=== PATIENT | male | born 1945 | race Caucasian/White ===

== ENCOUNTER 2018-09-05 15:24 | Observation (INO) ==
[2018-09-05] MEDS ORDERED: ZOFRAN INJ 4 MG VIAL IVP PRN (16:25)
[2018-09-05] MEDS ORDERED: NS 1000 ML 1,000 ML ONE (16:33)
[2018-09-05] MEDS ORDERED: TORADOL 30 MG VIAL ONE (16:34)
[2018-09-05] MEDS: NS 1000 ML 1,000 ML IV SCH (16:41)
[2018-09-05] MEDS: TORADOL 30 MG VIAL IVP PRN (16:41)
[2018-09-05 17:18] LABS: BASOPHILS # (AUTO) 0.1 X10^3/uL (0.0-0.1); BASOPHILS % (AUTO) 1.1 % (0.2-1.0); EOSINOPHILS # (AUTO) 0.1 x10^3/uL (0.0-0.2); EOSINOPHILS % (AUTO) 1.2 % (0.9-2.9); HEMATOCRIT 41.6 % (42.0-54.0); HEMOGLOBIN 14.2 g/dL (13.5-18.0); LYMPHOCYTES # (AUTO) 1.1 X10^3/uL (1.3-2.9); LYMPHOCYTES % (AUTO) 10.7 % (21.0-51.0); MEAN CORPUSCULAR HEMOGLOBIN 32.7 pg (27.0-34.0); MEAN CORPUSCULAR HGB CONC 34.1 g/dL (33.0-35.0); MONOCYTES # (AUTO) 0.7 x10^3/uL (0.3-0.8); MONOCYTES % (AUTO) 7.4 % (0.0-13.0); NEUTROPHILS # (AUTO) 7.9 x10^3/uL (2.2-4.8); NEUTROPHILS % (AUTO) 79.6 % (42.0-75.0); PLATELET COUNT 274 X10^3/uL (150.0-450.0); RED BLOOD COUNT 4.33 X10^6/uL (4.7-6.0); RED CELL DISTRIBUTION WIDTH 14.4 % (11.6-16.5); WHITE BLOOD COUNT 9.9 X10^3/uL (3.6-10.0)
[2018-09-05 17:28] LABS: ALANINE AMINOTRANSFERASE 25 Units/L (12-78); ALKALINE PHOSPHATASE 77 Units/L (46-116); ASPARTATE AMINO TRANSFERASE 16 Units/L (15-37); BLOOD UREA NITROGEN 29 mg/dL (7-18); CALCIUM 9.8 mg/dL (8.5-10.1); CARBON DIOXIDE 24.4 mmol/L (21-32); CHLORIDE 99 mmol/L (98-107); COR NA(FOR HYPERGLY) 139 mmol/L (136-145); CREATININE 1.44 mg/dL (0.70-1.30); SODIUM 136 mmol/L (136-145); eGFR NON BLACK RACES 51 (>60)
[2018-09-05] MEDS ORDERED: GLUCOPHAGE ONE (20:23)
[2018-09-05] MEDS: LEVAQUIN PREMIX IV 500 MG 500 MG/100 ML BAG IV SCH (21:01)
[2018-09-05] MEDS: GLUCOTROL PO SCH (21:01)
[2018-09-05] MEDS: GLUCOPHAGE PO SCH (21:01)
[2018-09-05] MEDS: FORTAZ or TAZICEF VIAL INJ IVP SCH (21:05)
[2018-09-05] MEDS: SNACK - Diabetic Appropriate PO SCH (21:09)
[2018-09-06] MEDS: TORADOL 30 MG VIAL IVP PRN ×4 (02:30→23:54)
[2018-09-06] MEDS ORDERED: GLUCOPHAGE ONE ×2 (05:14→16:05)
[2018-09-06 05:31] LABS: BASOPHILS % (AUTO) 0.5 % (0.2-1.0); EOSINOPHILS # (AUTO) 0.2 x10^3/uL (0.0-0.2); EOSINOPHILS % (AUTO) 2.9 % (0.9-2.9); HEMATOCRIT 38.7 % (42.0-54.0); HEMOGLOBIN 13.2 g/dL (13.5-18.0); LYMPHOCYTES # (AUTO) 1.2 X10^3/uL (1.3-2.9); LYMPHOCYTES % (AUTO) 16.1 % (21.0-51.0); MEAN CORPUSCULAR HEMOGLOBIN 33.1 pg (27.0-34.0); MEAN CORPUSCULAR HGB CONC 34.2 g/dL (33.0-35.0); MEAN CORPUSCULAR VOLUME 96.6 fL (80.0-100.0); MEAN PLATELET VOLUME 8.6 fL (7.4-11.0); MONOCYTES # (AUTO) 0.8 x10^3/uL (0.3-0.8); MONOCYTES % (AUTO) 10.6 % (0.0-13.0); NEUTROPHILS # (AUTO) 5.3 x10^3/uL (2.2-4.8); NEUTROPHILS % (AUTO) 69.9 % (42.0-75.0); PLATELET COUNT 248 X10^3/uL (150.0-450.0); RED CELL DISTRIBUTION WIDTH 14.5 % (11.6-16.5); WHITE BLOOD COUNT 7.6 X10^3/uL (3.6-10.0)
[2018-09-06] MEDS: GLUCOTROL PO SCH ×2 (05:31→16:23)
[2018-09-06] MEDS: FORTAZ or TAZICEF VIAL INJ IVP SCH ×2 (05:31→13:30)
[2018-09-06] MEDS: NS 1000 ML 1,000 ML IV SCH ×2 (05:31→18:02)
[2018-09-06 05:36] LABS: ALBUMIN 3.2 g/dL (3.4-5.0); CALCIUM 8.9 mg/dL (8.5-10.1); COR CA(FOR HYPOALB) 9.5 mg/dL (8.5-10.1); CREATININE 1.96 mg/dL (0.70-1.30)
[2018-09-06] MEDS: GLUCOPHAGE PO SCH ×2 (06:02→16:23)
[2018-09-06 07:57] VITALS: BMI 47.9
[2018-09-06] MEDS: LEVAQUIN PREMIX IV 500 MG 500 MG/100 ML BAG IV SCH (08:05)
[2018-09-06] MEDS: FIORICET TAB PO PRN ×3 (08:05→19:49)
[2018-09-06] MEDS: RANEXA PO SCH ×2 (11:04→20:30)
[2018-09-06] MEDS: NORVASC TAB 10 MG PO SCH (11:04)
[2018-09-06] MEDS: TAB-A-VITE PO SCH (11:06)
[2018-09-06] MEDS: CORDARONE TAB 200 MG PO SCH (11:06)
[2018-09-06] MEDS: SYNTHROID 50 mcg TAB PO SCH (11:06)
[2018-09-06] MEDS: ZANTAC PO SCH (11:06)
[2018-09-06] MEDS: ELIQUIS PO SCH ×2 (11:07→20:30)
[2018-09-06] MEDS: COENZYME Q10 100 MG PO SCH ×2 (11:19→20:33)
[2018-09-06] MEDS: EMPAGLIFLOZIN 25 MG PO SCH (11:26)
[2018-09-06] MEDS: PATIENT'S HOME MEDICATION (Glucosamine-Chondroit-Vit C-Mn [Glucosamine Chondroitin Maxstr] PO SCH ×2 (11:26→20:34)
[2018-09-06] MEDS: IRBESARTAN 300 MG PO SCH (11:27)
[2018-09-06] MEDS: PRASUGREL 10 MG PO SCH (11:27)
[2018-09-06] MEDS: SAXAGLIPTIN 5 MG PO SCH (11:28)
[2018-09-06] MEDS ORDERED: PHARMACY CONSULT - DOSE _____ XX SCH (17:00)
[2018-09-06] MEDS: SNACK - Diabetic Appropriate PO SCH (19:51)
[2018-09-06] MEDS: REQUIP PO SCH (20:30)
[2018-09-06] MEDS: VITAMIN C PO SCH (20:31)
[2018-09-06] MEDS: PRAVACHOL PO SCH (20:31)
[2018-09-06] MEDS: ASPIRIN EC 81 MG PO SCH (20:54)
[2018-09-06] MEDS ORDERED: BIOTIN 1000 MG PO SCH (21:00)
[2018-09-06] MEDS: ULTRAM PO PRN (23:08)
[2018-09-07] MEDS: FIORICET TAB PO PRN ×3 (04:00→17:09)
[2018-09-07 04:41] LABS: BASOPHILS % (AUTO) 0.3 % (0.2-1.0); EOSINOPHILS # (AUTO) 0.2 x10^3/uL (0.0-0.2); EOSINOPHILS % (AUTO) 1.9 % (0.9-2.9); HEMATOCRIT 40.9 % (42.0-54.0); HEMOGLOBIN 13.8 g/dL (13.5-18.0); LYMPHOCYTES # (AUTO) 1.2 X10^3/uL (1.3-2.9); LYMPHOCYTES % (AUTO) 13.3 % (21.0-51.0); MEAN CORPUSCULAR HEMOGLOBIN 32.6 pg (27.0-34.0); MEAN CORPUSCULAR HGB CONC 33.7 g/dL (33.0-35.0); MEAN CORPUSCULAR VOLUME 96.7 fL (80.0-100.0); MEAN PLATELET VOLUME 8.3 fL (7.4-11.0); MONOCYTES # (AUTO) 0.6 x10^3/uL (0.3-0.8); NEUTROPHILS # (AUTO) 7.2 x10^3/uL (2.2-4.8); NEUTROPHILS % (AUTO) 77.5 % (42.0-75.0); PLATELET COUNT 253 X10^3/uL (150.0-450.0); RED BLOOD COUNT 4.23 X10^6/uL (4.7-6.0); RED CELL DISTRIBUTION WIDTH 14.1 % (11.6-16.5); WHITE BLOOD COUNT 9.3 X10^3/uL (3.6-10.0)
[2018-09-07 04:55] LABS: ALBUMIN 3.1 g/dL (3.4-5.0); CALCIUM 8.8 mg/dL (8.5-10.1); CARBON DIOXIDE 24.1 mmol/L (21-32); COR CA(FOR HYPOALB) 9.5 mg/dL (8.5-10.1); CREATININE 1.64 mg/dL (0.70-1.30); TOTAL PROTEIN 7.1 g/dL (6.4-8.2)
[2018-09-07] MEDS ORDERED: GLUCOPHAGE ONE ×2 (06:23→15:18)
[2018-09-07] MEDS: GLUCOTROL PO SCH ×2 (06:31→16:26)
[2018-09-07] MEDS: GLUCOPHAGE PO SCH ×2 (06:31→16:26)
[2018-09-07] MEDS: TORADOL 30 MG VIAL IVP PRN ×3 (06:32→20:06)
[2018-09-07] MEDS: HumuLIN R SUBCUT PRN (06:33)
[2018-09-07] MEDS: RANEXA PO SCH ×2 (08:09→20:05)
[2018-09-07] MEDS: FORTAZ or TAZICEF VIAL INJ IVP SCH ×2 (08:09→20:04)
[2018-09-07] MEDS: CORDARONE TAB 200 MG PO SCH (08:09)
[2018-09-07] MEDS: ZANTAC PO SCH (08:10)
[2018-09-07] MEDS: SYNTHROID 50 mcg TAB PO SCH (08:10)
[2018-09-07] MEDS: TAB-A-VITE PO SCH (08:10)
[2018-09-07] MEDS: ELIQUIS PO SCH ×2 (08:10→20:05)
[2018-09-07] MEDS: NORVASC TAB 10 MG PO SCH (08:11)
[2018-09-07] MEDS: COENZYME Q10 100 MG PO SCH ×2 (08:12→20:16)
[2018-09-07] MEDS: EMPAGLIFLOZIN 25 MG PO SCH (08:13)
[2018-09-07] MEDS: PATIENT'S HOME MEDICATION (Glucosamine-Chondroit-Vit C-Mn [Glucosamine Chondroitin Maxstr] PO SCH ×2 (08:14→20:17)
[2018-09-07] MEDS: SAXAGLIPTIN 5 MG PO SCH (08:15)
[2018-09-07] MEDS: IRBESARTAN 300 MG PO SCH (08:15)
[2018-09-07] MEDS: PRASUGREL 10 MG PO SCH (08:16)
[2018-09-07] MEDS: NS 1000 ML 1,000 ML IV SCH ×2 (08:17→15:40)
[2018-09-07] MEDS ORDERED: LOVENOX INJ 30 MG SYR SC SCH (09:00)
[2018-09-07] MEDS: REQUIP PO SCH (20:05)
[2018-09-07] MEDS: PRAVACHOL PO SCH (20:05)
[2018-09-07] MEDS: VITAMIN C PO SCH (20:05)
[2018-09-07] MEDS: SNACK - Diabetic Appropriate PO SCH (20:09)
[2018-09-07] MEDS: ASPIRIN EC 81 MG PO SCH (20:16)
--- NOTE | 2018-09-07 20:45 | DR.UPDATE ---
H&P Update History and Physical Update: History and Physical reviewed and patient examined. Changes noted: Yes with the following: WAS SEEN IN THE OFFICE TODAY FOR PERSISTENT HEADACHE. HE WAS SEEN IN THE ER ONE DAY AGO. 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 LEFT PARANASAL SINUS MUCOSAL DISEASE. HE WAS GIVEN IV ANTIBIOTICS IN THE ER AND STARTED ON AUGEMENTIN. HE REPORTS THAT SYMPTOMS CONTINUE TO BE PRESENT. HE WAS ADMITTED TO THE HOSPITAL FOR INTRACTABLE HEADACHE, DEHYDRATION, AND SINUSITIS. ON ADMISSION, WE PLAN TO OBTAIN LABS AND WILL START FORTAZ 1G IV Q8H, LEVAQUIN MG IV DAILY, NORMAL SALINE AT 80 ML/HR, TORADOL 15MG IV Q6H PRN, AND FIORCET 1 TAB Q4H PRN. OTHERWISE, WE WILL FOLLOW UP WITH AM LABS AND CONTINUE TO MONITOR. Prescription drug monitoring program results: PDMP reviewed and no concerns identified
--- NOTE | 2018-09-07 21:27 | PCM.PROG ---
Progress Note - Progress Note for Day of Date of Exam: 09/06/18 - Subjective Subjective: WAS ADMITTED FOR ACUTE SINUSITIS, INTRACTABLE HEADACHE, AND DEHYDRATION. TODAY, HE IS ALERT AND ORIENTED, LYING IN BED ON MORNING ROUNDS. HE CONTINUES WITH HEADACHE TODAY. HE ALSO REPORTS GENERALIZED WEAKNESS. ON EXAMINATION, HEART IS REGULAR IN RATE AND RHYTHM. BILATERAL LUNGS ARE NOTED WITH DIMINISHED LUNG SOUNDS THROUGHOUT. ABDOMEN IS ROUND, SOFT, AND NON-TENDER WITH NORMAL BOWEL SOUNDS THROUGHOUT. HIS VITALS THIS MORNING ARE: 98.1-76-20-97%-148/80. LABS WERE OBTAINED. ABNORMAL LAB VALUES INCLUDE THE FOLLOWING: RBC 4.00, HGB 13.2, HCT 38.7, BUN 39, CREATININE 1.96, GLUCOSE 139, AST 13, ALBUMIN 3.2. BLOOD CULTURES ARE PENDING. HE IS CURRENTLY RECEIVING IV FLUIDS, IV FORTAZ, IV LEVAQUIN, TORADOL PRN, AND FIORCET PRN. WE WILL CONTINUE WITH CURRENT PLAN OF CARE TODAY. OTHERWISE, WE WILL FOLLOW-UP WITH AM LABS AND CONTINUE TO MONITOR. - Past Medical Family Social History Past Med/Fam/Surg Hx: No changes since H&P Allergies: Allergies iodine Allergy (Verified 09/05/18 18:28) - Review of Systems ROS: No change since H&P - Vital Signs and I&O's Vital Signs: Temperature 98.1 F Pulse Rate [Right Brachial] 77 Respiratory Rate 22 Blood Pressure [Left Arm] 167/79 Blood Pressure [Right Arm] 162/70 Blood Pressure 163/79 O2 Sat by Pulse Oximetry 93 Intake and Output: Intake & Output 09/05/18 09/06/18 09/07/18 09/08/18 11:59 11:59 11:59 11:59 Intake Total 1949 2980 / 2980 2480 / 2480 Balance 1949 2980 / 2980 2480 / 2480 - Physical Exam Oriented: Normal Eyes: Normal Ear: Normal Nose: Normal Throat: Normal Respiratory: Generalized, Diminished Cardiovascular: Normal : Normal Auscultation: Bowel Sounds: Normal Palpation: Normal Tenderness: Normal Skin: Decreased Turgur Musculoskeletal: Normal Psychiatric: Normal Mood Description: Calm Affect: Normal Speech Pattern: Clear, Appropriate - Laboratory and Diagnostics Result Diagrams: 09/07/18 04:17 09/07/18 04:17 Labs: 09/05/18 16:58 Blood Blood Culture - Preliminary 09/05/18 16:47 Blood Blood Culture - Preliminary Laboratory WBC 9.3 X10^3/uL (3.6-10.0) 09/07/18 04:17 RBC 4.23 X10^6/uL (4.7-6.0) L 09/07/18 04:17 Hgb 13.8 g/dL (13.5-18.0) 09/07/18 04:17 Hct 40.9 % (42.0-54.0) L 09/07/18 04:17 MCV 96.7 fL (80.0-100.0) 09/07/18 04:17 MCH 32.6 pg (27.0-34.0) 09/07/18 04:17 MCHC 33.7 g/dL (33.0-35.0) 09/07/18 04:17 RDW 14.1 % (11.6-16.5) 09/07/18 04:17 Plt Count 253 X10^3/uL (150.0-450.0) 09/07/18 04:17 MPV 8.3 fL (7.4-11.0) 09/07/18 04:17 Neut % (Auto) 77.5 % (42.0-75.0) H 09/07/18 04:17 Lymph % (Auto) 13.3 % (21.0-51.0) L 09/07/18 04:17 [place] % (Auto) 7.0 % (0.0-13.0) 09/07/18 04:17 Eos % (Auto) 1.9 % (0.9-2.9) 09/07/18 04:17 Baso % (Auto) 0.3 % (0.2-1.0) 09/07/18 04:17 Neut # (Auto) 7.2 x10^3/uL (2.2-4.8) H 09/07/18 04:17 Lymph # (Auto) 1.2 X10^3/uL (1.3-2.9) L 09/07/18 04:17 [place] # (Auto) 0.6 x10^3/uL (0.3-0.8) 09/07/18 04:17 Eos # (Auto) 0.2 x10^3/uL (0.0-0.2) 09/07/18 04:17 Baso # (Auto) 0.0 X10^3/uL (0.0-0.1) 09/07/18 04:17 Absolute Nucleated RBC 0.0 /100WBC 09/07/18 04:17 Sodium 136 mmol/L (136-145) 09/07/18 04:17 Corrected Sodium 139 mmol/L (136-145) 09/07/18 04:17 Potassium 5.1 mmol/L (3.5-5.1) 09/07/18 04:17 Chloride 103 mmol/L (98-107) 09/07/18 04:17 Carbon Dioxide 24.1 mmol/L (21-32) 09/07/18 04:17 BUN 38 mg/dL (7-18) H 09/07/18 04:17 Creatinine 1.64 mg/dL (0.70-1.30) H 09/07/18 04:17 Est GFR (MDRD) Af Amer 54 (>60) L 09/07/18 04:17 Est GFR (MDRD) Non-Af 44 (>60) L 09/07/18 04:17 Glucose 221 mg/dL (65-99) H 09/07/18 04:17 POC Glucose (mg/dL) 114 mg/dL (65-99) H 09/07/18 20:15 Calcium 8.8 mg/dL (8.5-10.1) 09/07/18 04:17 Corrected Calcium 9.5 mg/dL (8.5-10.1) 09/07/18 04:17 Total Bilirubin 0.60 mg/dL (0.2-1.0) 09/07/18 04:17 AST 18 Units/L (15-37) 09/07/18 04:17 ALT 28 Units/L (12-78) 09/07/18 04:17 Alkaline Phosphatase 85 Units/L (46-116) 09/07/18 04:17 Total Protein 7.1 g/dL (6.4-8.2) 09/07/18 04:17 Albumin 3.1 g/dL (3.4-5.0) L 09/07/18 04:17 Globulin 4.0 g/dL (2.5-4.5) 09/07/18 04:17 Albumin/Globulin Ratio 0.8 Ratio (1.1-2.1) L 09/07/18 04:17 - Plan (1) Acute sinusitis Status: Acute Qualifiers: Sinusitis location: unspecified location Recurrence: non-recurrent Qualified Code(s): J01.90 - Acute sinusitis, unspecified Plan: IV FORTAZ, IV LEVAQUIN, CONTINUE TO MONITOR (2) Intractable headache Status: Acute Qualifiers: Headache type: unspecified Headache chronicity pattern: acute headache Qualified Code(s): R51 - Headache Plan: TORADOL IV PRN, FIORCET PRN, CONTINUE TO MONITOR (3) Dehydration Status: Acute Plan: NORMAL SALINE, CONTINUE TO MONITOR
[2018-09-08] MEDS: FIORICET TAB PO PRN ×3 (01:42→22:09)
[2018-09-08] MEDS: TORADOL 30 MG VIAL IVP PRN ×3 (03:37→16:20)
[2018-09-08] MEDS ORDERED: AYR NASAL DROPS ONE (03:48)
[2018-09-08] MEDS: AYR NASAL DROPS PRN ×2 (03:50→22:15)
[2018-09-08 05:11] LABS: BASOPHILS % (AUTO) 0.5 % (0.2-1.0); EOSINOPHILS # (AUTO) 0.3 x10^3/uL (0.0-0.2); EOSINOPHILS % (AUTO) 3.2 % (0.9-2.9); HEMATOCRIT 39.7 % (42.0-54.0); HEMOGLOBIN 13.6 g/dL (13.5-18.0); LYMPHOCYTES # (AUTO) 1.3 X10^3/uL (1.3-2.9); LYMPHOCYTES % (AUTO) 15.2 % (21.0-51.0); MEAN CORPUSCULAR HEMOGLOBIN 33.2 pg (27.0-34.0); MEAN CORPUSCULAR HGB CONC 34.4 g/dL (33.0-35.0); MEAN CORPUSCULAR VOLUME 96.6 fL (80.0-100.0); MEAN PLATELET VOLUME 8.3 fL (7.4-11.0); MONOCYTES # (AUTO) 0.9 x10^3/uL (0.3-0.8); MONOCYTES % (AUTO) 10.7 % (0.0-13.0); NEUTROPHILS # (AUTO) 5.9 x10^3/uL (2.2-4.8); NEUTROPHILS % (AUTO) 70.4 % (42.0-75.0); PLATELET COUNT 229 X10^3/uL (150.0-450.0); RED CELL DISTRIBUTION WIDTH 14.3 % (11.6-16.5); WHITE BLOOD COUNT 8.4 X10^3/uL (3.6-10.0)
[2018-09-08 05:23] LABS: ALBUMIN 3.2 g/dL (3.4-5.0); CARBON DIOXIDE 24.8 mmol/L (21-32); COR CA(FOR HYPOALB) 9.6 mg/dL (8.5-10.1); CREATININE 1.52 mg/dL (0.70-1.30); TOTAL PROTEIN 7.2 g/dL (6.4-8.2)
[2018-09-08] MEDS ORDERED: GLUCOPHAGE ONE ×2 (05:58→15:38)
[2018-09-08] MEDS: GLUCOTROL PO SCH ×2 (06:05→17:38)
[2018-09-08] MEDS: GLUCOPHAGE PO SCH ×2 (06:13→17:38)
[2018-09-08] MEDS: HumuLIN R SUBCUT PRN (06:16)
[2018-09-08] MEDS: NS 1000 ML 1,000 ML IV SCH ×3 (06:40→23:02)
[2018-09-08] MEDS: ULTRAM PO PRN (08:38)
[2018-09-08] MEDS: FORTAZ or TAZICEF VIAL INJ IVP SCH ×2 (09:30→20:43)
[2018-09-08] MEDS: NORVASC TAB 10 MG PO SCH (09:33)
[2018-09-08] MEDS: SYNTHROID 50 mcg TAB PO SCH (09:33)
[2018-09-08] MEDS: TAB-A-VITE PO SCH (09:33)
[2018-09-08] MEDS: RANEXA PO SCH ×2 (09:33→20:42)
[2018-09-08] MEDS: ZANTAC PO SCH (09:34)
[2018-09-08] MEDS: ELIQUIS PO SCH ×2 (09:34→20:43)
[2018-09-08] MEDS: LEVAQUIN PREMIX IV 500 MG 500 MG/100 ML BAG IV SCH (09:35)
[2018-09-08] MEDS: SAXAGLIPTIN 5 MG PO SCH (09:42)
[2018-09-08] MEDS: IRBESARTAN 300 MG PO SCH (09:43)
[2018-09-08] MEDS: PRASUGREL 10 MG PO SCH (09:43)
[2018-09-08] MEDS: EMPAGLIFLOZIN 25 MG PO SCH (09:44)
[2018-09-08] MEDS: PATIENT'S HOME MEDICATION (Glucosamine-Chondroit-Vit C-Mn [Glucosamine Chondroitin Maxstr] PO SCH ×2 (09:44→20:45)
[2018-09-08] MEDS: CORDARONE TAB 200 MG PO SCH (09:45)
[2018-09-08] MEDS: COENZYME Q10 100 MG PO SCH ×2 (09:45→20:45)
[2018-09-08] MEDS: PERCOCET TAB 5/325 MG PO PRN ×2 (12:25→20:41)
--- NOTE | 2018-09-08 18:34 | PCM.PROG ---
Progress Note - Progress Note for Day of Date of Exam: 09/07/18 - Subjective Subjective: WAS ADMITTED FOR ACUTE SINUSITIS, INTRACTABLE HEADACHE, AND DEHYDRATION. TODAY, HE IS ALERT AND ORIENTED, LYING IN BED ON MORNING ROUNDS. HE CONTINUES WITH HEADACHE AND GENERALIZED WEAKNESS TODAY. ON EXAMINATION, HEART IS REGULAR IN RATE AND RHYTHM. BILATERAL LUNGS ARE NOTED WITH DIMINISHED LUNG SOUNDS THROUGHOUT. ABDOMEN IS ROUND, SOFT, AND NON-TENDER WITH NORMAL BOWEL SOUNDS THROUGHOUT. HIS VITALS THIS MORNING ARE: 98.3-66-20-96%-175/75. LABS WERE OBTAINED. ABNORMAL LAB VALUES INCLUDE THE FOLLOWING: RBC 4.23, HCT 40.9, BUN 38, CREATININE 1.64, GLUCOSE 221, ALBUMIN 3.1. BLOOD CULTURES ARE PENDING. HE IS CURRENTLY RECEIVING IV FLUIDS, IV FORTAZ, IV LEVAQUIN, TORADOL PRN, AND FIORCET PRN. WE WILL CONTINUE WITH CURRENT PLAN OF CARE TODAY. OTHERWISE, WE WILL FOLLOW-UP WITH AM LABS AND CONTINUE TO MONITOR. - Past Medical Family Social History Past Med/Fam/Surg Hx: No changes since H&P Allergies: Allergies iodine Allergy (Verified 09/05/18 18:28) - Review of Systems ROS: No change since H&P - Vital Signs and I&O's Vital Signs: Temperature 97.5 F Pulse Rate [Right Brachial] 62 Respiratory Rate 18 Blood Pressure [Left Arm] 164/60 Blood Pressure [Right Arm] 162/70 Blood Pressure 163/79 O2 Sat by Pulse Oximetry 97 Intake and Output: Intake & Output 09/06/18 09/07/18 09/08/18 09/09/18 11:59 11:59 11:59 11:59 Intake Total 1949 2980 / 2980 4300 / 4300 1839 Balance 1949 2980 / 2980 4300 / 4300 1839 - Physical Exam Oriented: Normal Eyes: Normal Ear: Normal Nose: Normal Throat: Normal Respiratory: Generalized, Diminished Cardiovascular: Normal : Normal Auscultation: Bowel Sounds: Normal Tenderness: Normal Skin: Decreased Turgur Musculoskeletal: Normal Psychiatric: Normal Mood Description: Calm Affect: Normal Speech Pattern: Clear, Appropriate - Laboratory and Diagnostics Result Diagrams: 09/08/18 04:38 09/08/18 04:38 Labs: 09/05/18 16:58 Blood Blood Culture - Preliminary 09/05/18 16:47 Blood Blood Culture - Preliminary Laboratory WBC 8.4 X10^3/uL (3.6-10.0) 09/08/18 04:38 RBC 4.10 X10^6/uL (4.7-6.0) L 09/08/18 04:38 Hgb 13.6 g/dL (13.5-18.0) 09/08/18 04:38 Hct 39.7 % (42.0-54.0) L 09/08/18 04:38 MCV 96.6 fL (80.0-100.0) 09/08/18 04:38 MCH 33.2 pg (27.0-34.0) 09/08/18 04:38 MCHC 34.4 g/dL (33.0-35.0) 09/08/18 04:38 RDW 14.3 % (11.6-16.5) 09/08/18 04:38 Plt Count 229 X10^3/uL (150.0-450.0) 09/08/18 04:38 MPV 8.3 fL (7.4-11.0) 09/08/18 04:38 Neut % (Auto) 70.4 % (42.0-75.0) 09/08/18 04:38 Lymph % (Auto) 15.2 % (21.0-51.0) L 09/08/18 04:38 [place] % (Auto) 10.7 % (0.0-13.0) 09/08/18 04:38 Eos % (Auto) 3.2 % (0.9-2.9) H 09/08/18 04:38 Baso % (Auto) 0.5 % (0.2-1.0) 09/08/18 04:38 Neut # (Auto) 5.9 x10^3/uL (2.2-4.8) H 09/08/18 04:38 Lymph # (Auto) 1.3 X10^3/uL (1.3-2.9) 09/08/18 04:38 [place] # (Auto) 0.9 x10^3/uL (0.3-0.8) H 09/08/18 04:38 Eos # (Auto) 0.3 x10^3/uL (0.0-0.2) H 09/08/18 04:38 Baso # (Auto) 0.0 X10^3/uL (0.0-0.1) 09/08/18 04:38 Absolute Nucleated RBC 0.0 /100WBC 09/08/18 04:38 Sodium 138 mmol/L (136-145) 09/08/18 04:38 Corrected Sodium 139 mmol/L (136-145) 09/08/18 04:38 Potassium 4.9 mmol/L (3.5-5.1) 09/08/18 04:38 Chloride 105 mmol/L (98-107) 09/08/18 04:38 Carbon Dioxide 24.8 mmol/L (21-32) 09/08/18 04:38 BUN 30 mg/dL (7-18) H 09/08/18 04:38 Creatinine 1.52 mg/dL (0.70-1.30) H 09/08/18 04:38 Est GFR (MDRD) Af Amer 58 (>60) L 09/08/18 04:38 Est GFR (MDRD) Non-Af 48 (>60) L 09/08/18 04:38 Glucose 161 mg/dL (65-99) H 09/08/18 04:38 POC Glucose (mg/dL) 86 mg/dL (65-99) 09/08/18 15:47 Calcium 9.0 mg/dL (8.5-10.1) 09/08/18 04:38 Corrected Calcium 9.6 mg/dL (8.5-10.1) 09/08/18 04:38 Total Bilirubin 0.60 mg/dL (0.2-1.0) 09/08/18 04:38 AST 18 Units/L (15-37) 09/08/18 04:38 ALT 26 Units/L (12-78) 09/08/18 04:38 Alkaline Phosphatase 75 Units/L (46-116) 09/08/18 04:38 Total Protein 7.2 g/dL (6.4-8.2) 09/08/18 04:38 Albumin 3.2 g/dL (3.4-5.0) L 09/08/18 04:38 Globulin 4.0 g/dL (2.5-4.5) 09/08/18 04:38 Albumin/Globulin Ratio 0.8 Ratio (1.1-2.1) L 09/08/18 04:38 - Plan (1) Acute sinusitis Status: Acute Qualifiers: Sinusitis location: unspecified location Recurrence: non-recurrent Qualified Code(s): J01.90 - Acute sinusitis, unspecified Plan: IV FORTAZ, IV LEVAQUIN, CONTINUE TO MONITOR (2) Intractable headache Status: Acute Qualifiers: Headache type: unspecified Headache chronicity pattern: acute headache Qualified Code(s): R51 - Headache Plan: TORADOL IV PRN, FIORCET PRN, CONTINUE TO MONITOR (3) Dehydration Status: Acute Plan: NORMAL SALINE, CONTINUE TO MONITOR
[2018-09-08] MEDS: SNACK - Diabetic Appropriate PO SCH (20:00)
[2018-09-08] MEDS: REQUIP PO SCH (20:41)
[2018-09-08] MEDS: PRAVACHOL PO SCH (20:41)
[2018-09-08] MEDS: VITAMIN C PO SCH (20:43)
[2018-09-08] MEDS: MILK OF MAGNESIA PO SCH (20:43)
[2018-09-08] MEDS ORDERED: COLACE CAP 100 MG PO SCH (21:00)
[2018-09-08] MEDS: ASPIRIN EC 81 MG PO SCH (21:53)
[2018-09-09] MEDS: TORADOL 30 MG VIAL IVP PRN ×2 (01:03→08:17)
[2018-09-09] MEDS: PERCOCET TAB 5/325 MG PO SCH ×4 (03:10→21:23)
[2018-09-09 05:20] LABS: BASOPHILS % (AUTO) 0.3 % (0.2-1.0); EOSINOPHILS # (AUTO) 0.2 x10^3/uL (0.0-0.2); HEMOGLOBIN 13.9 g/dL (13.5-18.0); LYMPHOCYTES # (AUTO) 1.3 X10^3/uL (1.3-2.9); LYMPHOCYTES % (AUTO) 14.1 % (21.0-51.0); MEAN CORPUSCULAR HEMOGLOBIN 32.8 pg (27.0-34.0); MEAN CORPUSCULAR VOLUME 96.5 fL (80.0-100.0); MEAN PLATELET VOLUME 8.7 fL (7.4-11.0); MONOCYTES # (AUTO) 0.5 x10^3/uL (0.3-0.8); MONOCYTES % (AUTO) 5.8 % (0.0-13.0); NEUTROPHILS # (AUTO) 7.1 x10^3/uL (2.2-4.8); NEUTROPHILS % (AUTO) 77.8 % (42.0-75.0); PLATELET COUNT 280 X10^3/uL (150.0-450.0); RED BLOOD COUNT 4.25 X10^6/uL (4.7-6.0); RED CELL DISTRIBUTION WIDTH 14.5 % (11.6-16.5); WHITE BLOOD COUNT 9.1 X10^3/uL (3.6-10.0)
[2018-09-09 05:32] LABS: ALANINE AMINOTRANSFERASE 30 Units/L (12-78); ALBUMIN 3.2 g/dL (3.4-5.0); ALKALINE PHOSPHATASE 83 Units/L (46-116); ASPARTATE AMINO TRANSFERASE 18 Units/L (15-37); BLOOD UREA NITROGEN 28 mg/dL (7-18); CALCIUM 8.9 mg/dL (8.5-10.1); CARBON DIOXIDE 25.4 mmol/L (21-32); CHLORIDE 104 mmol/L (98-107); COR CA(FOR HYPOALB) 9.5 mg/dL (8.5-10.1); COR NA(FOR HYPERGLY) 138 mmol/L (136-145); CREATININE 1.36 mg/dL (0.70-1.30); SODIUM 136 mmol/L (136-145); TOTAL PROTEIN 7.4 g/dL (6.4-8.2); eGFR NON BLACK RACES 55 (>60)
[2018-09-09] MEDS ORDERED: GLUCOPHAGE ONE ×2 (06:00→15:41)
[2018-09-09] MEDS: GLUCOPHAGE PO SCH ×3 (06:16→16:53)
[2018-09-09] MEDS: FIORICET TAB PO PRN (06:16)
[2018-09-09] MEDS: GLUCOTROL PO SCH ×2 (06:16→15:45)
[2018-09-09] MEDS: AYR NASAL DROPS PRN (06:17)
[2018-09-09] MEDS: NORVASC TAB 10 MG PO SCH (08:22)
[2018-09-09] MEDS: CORDARONE TAB 200 MG PO SCH (08:23)
[2018-09-09] MEDS: ZANTAC PO SCH (08:24)
[2018-09-09] MEDS: IRBESARTAN 300 MG PO SCH (08:25)
[2018-09-09] MEDS: ELIQUIS PO SCH ×2 (08:25→21:21)
[2018-09-09] MEDS: SAXAGLIPTIN 5 MG PO SCH (08:26)
[2018-09-09] MEDS: PRASUGREL 10 MG PO SCH (08:26)
[2018-09-09] MEDS: EMPAGLIFLOZIN 25 MG PO SCH (08:27)
[2018-09-09] MEDS: COENZYME Q10 100 MG PO SCH ×2 (08:27→21:25)
[2018-09-09] MEDS: TAB-A-VITE PO SCH (08:27)
[2018-09-09] MEDS: PATIENT'S HOME MEDICATION (Glucosamine-Chondroit-Vit C-Mn [Glucosamine Chondroitin Maxstr] PO SCH ×2 (08:27→21:28)
[2018-09-09] MEDS: MILK OF MAGNESIA PO SCH ×2 (08:28→21:26)
[2018-09-09] MEDS: FORTAZ or TAZICEF VIAL INJ IVP SCH ×2 (08:29→21:19)
[2018-09-09] MEDS: RANEXA PO SCH ×2 (08:38→21:22)
[2018-09-09] MEDS: SYNTHROID 50 mcg TAB PO SCH (08:38)
[2018-09-09] MEDS ORDERED: COLACE CAP 100 MG PO PRN (08:55)
[2018-09-09] MEDS ORDERED: SOLU-Medrol 125 MG VIAL IVP ONE (08:56)
[2018-09-09] MEDS: TORADOL TAB PO SCH ×3 (09:23→21:19)
[2018-09-09] MEDS: FLONASE NASAL SPRAY ENOSTRIL SCH (10:09)
[2018-09-09] MEDS: MUCINEX DM PO SCH ×2 (10:09→21:22)
[2018-09-09] MEDS: FIORICET TAB PO SCH ×3 (10:17→21:22)
[2018-09-09] MEDS: NS 1000 ML 1,000 ML IV SCH (14:24)
[2018-09-09] MEDS: HumuLIN R SUBCUT PRN ×2 (16:13→22:00)
--- NOTE | 2018-09-09 19:58 | PCM.PROG ---
Progress Note - Progress Note for Day of Date of Exam: 09/08/18 - Subjective Subjective: WAS ADMITTED FOR ACUTE SINUSITIS, INTRACTABLE HEADACHE, AND DEHYDRATION. TODAY, HE IS ALERT AND ORIENTED, LYING IN BED ON MORNING ROUNDS. HE CONTINUES WITH HEADACHE AND GENERALIZED WEAKNESS TODAY. ON EXAMINATION, HEART IS REGULAR IN RATE AND RHYTHM. BILATERAL LUNGS ARE NOTED WITH DIMINISHED LUNG SOUNDS THROUGHOUT. ABDOMEN IS ROUND, SOFT, AND NON-TENDER WITH NORMAL BOWEL SOUNDS THROUGHOUT. HIS VITALS THIS MORNING ARE: 98.4-61-20-97%-150/67. LABS WERE OBTAINED. ABNORMAL LAB VALUES INCLUDE THE FOLLOWING: RBC 4.10, HCT 39.7, BUN 30, CREATININE 1.52, GLUCOSE 161, ALBUMIN 3.2. BLOOD CULTURES ARE PENDING. HE IS CURRENTLY RECEIVING IV FLUIDS, IV FORTAZ, IV LEVAQUIN, TORADOL PRN, AND FIORCET PRN. TODAY, WE WILL ADD PERCOCET 5/325 PO Q6H PRN. OTHERWISE, WE WILL CONTINUE WITH CURRENT PLAN OF CARE TODAY. WE WILL FOLLOW-UP WITH AM LABS AND CONTINUE TO MONITOR. - Past Medical Family Social History Past Med/Fam/Surg Hx: No changes since H&P Allergies: Allergies iodine Allergy (Verified 09/05/18 18:28) - Review of Systems ROS: No change since H&P - Vital Signs and I&O's Vital Signs: Temperature 97.6 F Pulse Rate [Right Brachial] 77 Respiratory Rate 20 Blood Pressure [Left Arm] 147/68 Blood Pressure [Right Arm] 162/70 Blood Pressure 163/79 O2 Sat by Pulse Oximetry 97 Intake and Output: Intake & Output 09/07/18 09/08/18 09/09/18 09/10/18 11:59 11:59 11:59 11:59 Intake Total 2980 / 2980 4300 / 4300 4988 / 4988 1407 / 1407 Balance 2980 / 2980 4300 / 4300 4988 / 4988 1407 / 1407 - Physical Exam Oriented: Normal Eyes: Normal Ear: Normal Nose: Normal Throat: Normal Respiratory: Generalized, Diminished Cardiovascular: Normal : Normal Auscultation: Bowel Sounds: Normal Palpation: Normal Tenderness: Normal Skin: Decreased Turgur Musculoskeletal: Normal Psychiatric: Normal Mood Description: Calm Affect: Normal Speech Pattern: Clear, Appropriate - Laboratory and Diagnostics Result Diagrams: 09/09/18 04:37 09/09/18 04:37 Labs: 09/05/18 16:58 Blood Blood Culture - Preliminary 09/05/18 16:47 Blood Blood Culture - Preliminary Laboratory WBC 9.1 X10^3/uL (3.6-10.0) 09/09/18 04:37 RBC 4.25 X10^6/uL (4.7-6.0) L 09/09/18 04:37 Hgb 13.9 g/dL (13.5-18.0) 09/09/18 04:37 Hct 41.0 % (42.0-54.0) L 09/09/18 04:37 MCV 96.5 fL (80.0-100.0) 09/09/18 04:37 MCH 32.8 pg (27.0-34.0) 09/09/18 04:37 MCHC 34.0 g/dL (33.0-35.0) 09/09/18 04:37 RDW 14.5 % (11.6-16.5) 09/09/18 04:37 Plt Count 280 X10^3/uL (150.0-450.0) 09/09/18 04:37 MPV 8.7 fL (7.4-11.0) 09/09/18 04:37 Neut % (Auto) 77.8 % (42.0-75.0) H 09/09/18 04:37 Lymph % (Auto) 14.1 % (21.0-51.0) L 09/09/18 04:37 [place] % (Auto) 5.8 % (0.0-13.0) 09/09/18 04:37 Eos % (Auto) 2.0 % (0.9-2.9) 09/09/18 04:37 Baso % (Auto) 0.3 % (0.2-1.0) 09/09/18 04:37 Neut # (Auto) 7.1 x10^3/uL (2.2-4.8) H 09/09/18 04:37 Lymph # (Auto) 1.3 X10^3/uL (1.3-2.9) 09/09/18 04:37 [place] # (Auto) 0.5 x10^3/uL (0.3-0.8) 09/09/18 04:37 Eos # (Auto) 0.2 x10^3/uL (0.0-0.2) 09/09/18 04:37 Baso # (Auto) 0.0 X10^3/uL (0.0-0.1) 09/09/18 04:37 Absolute Nucleated RBC 0.1 /100WBC 09/09/18 04:37 Sodium 136 mmol/L (136-145) 09/09/18 04:37 Corrected Sodium 138 mmol/L (136-145) 09/09/18 04:37 Potassium 5.1 mmol/L (3.5-5.1) 09/09/18 04:37 Chloride 104 mmol/L (98-107) 09/09/18 04:37 Carbon Dioxide 25.4 mmol/L (21-32) 09/09/18 04:37 BUN 28 mg/dL (7-18) H 09/09/18 04:37 Creatinine 1.36 mg/dL (0.70-1.30) H 09/09/18 04:37 Est GFR (MDRD) Af Amer > 60 (>60) 09/09/18 04:37 Est GFR (MDRD) Non-Af 55 (>60) L 09/09/18 04:37 Glucose 170 mg/dL (65-99) H 09/09/18 04:37 POC Glucose (mg/dL) 212 mg/dL (65-99) H 09/09/18 16:01 Calcium 8.9 mg/dL (8.5-10.1) 09/09/18 04:37 Corrected Calcium 9.5 mg/dL (8.5-10.1) 09/09/18 04:37 Total Bilirubin 0.50 mg/dL (0.2-1.0) 09/09/18 04:37 AST 18 Units/L (15-37) 09/09/18 04:37 ALT 30 Units/L (12-78) 09/09/18 04:37 Alkaline Phosphatase 83 Units/L (46-116) 09/09/18 04:37 Total Protein 7.4 g/dL (6.4-8.2) 09/09/18 04:37 Albumin 3.2 g/dL (3.4-5.0) L 09/09/18 04:37 Globulin 4.2 g/dL (2.5-4.5) 09/09/18 04:37 Albumin/Globulin Ratio 0.8 Ratio (1.1-2.1) L 09/09/18 04:37 - Plan (1) Acute sinusitis Status: Acute Qualifiers: Sinusitis location: unspecified location Recurrence: non-recurrent Qualified Code(s): J01.90 - Acute sinusitis, unspecified Plan: IV FORTAZ, IV LEVAQUIN, CONTINUE TO MONITOR (2) Intractable headache Status: Acute Qualifiers: Headache type: unspecified Headache chronicity pattern: acute headache Qualified Code(s): R51 - Headache Plan: TORADOL IV PRN, FIORCET PRN, PERCOCET, CONTINUE TO MONITOR (3) Dehydration Status: Acute Plan: NORMAL SALINE, CONTINUE TO MONITOR
[2018-09-09] MEDS: SNACK - Diabetic Appropriate PO SCH (21:00)
[2018-09-09] MEDS: ASPIRIN EC 81 MG PO SCH (21:21)
[2018-09-09] MEDS: PRAVACHOL PO SCH (21:24)
[2018-09-09] MEDS: VITAMIN C PO SCH (21:24)
[2018-09-09] MEDS: REQUIP PO SCH (21:24)
[2018-09-10] MEDS: NS 1000 ML 1,000 ML IV SCH ×2 (01:36→05:11)
[2018-09-10] MEDS: FIORICET TAB PO SCH ×2 (04:55→09:13)
[2018-09-10] MEDS: TORADOL TAB PO SCH (05:26)
[2018-09-10 05:39] LABS: BASOPHILS % (AUTO) 0.2 % (0.2-1.0); EOSINOPHILS % (AUTO) 0.1 % (0.9-2.9); HEMATOCRIT 39.1 % (42.0-54.0); HEMOGLOBIN 13.2 g/dL (13.5-18.0); LYMPHOCYTES # (AUTO) 1.1 X10^3/uL (1.3-2.9); LYMPHOCYTES % (AUTO) 11.3 % (21.0-51.0); MEAN CORPUSCULAR HEMOGLOBIN 32.3 pg (27.0-34.0); MEAN CORPUSCULAR HGB CONC 33.7 g/dL (33.0-35.0); MEAN PLATELET VOLUME 8.3 fL (7.4-11.0); MONOCYTES # (AUTO) 0.7 x10^3/uL (0.3-0.8); MONOCYTES % (AUTO) 7.1 % (0.0-13.0); NEUTROPHILS # (AUTO) 8.1 x10^3/uL (2.2-4.8); NEUTROPHILS % (AUTO) 81.3 % (42.0-75.0); PLATELET COUNT 292 X10^3/uL (150.0-450.0); RED BLOOD COUNT 4.07 X10^6/uL (4.7-6.0); RED CELL DISTRIBUTION WIDTH 14.5 % (11.6-16.5); WHITE BLOOD COUNT 9.9 X10^3/uL (3.6-10.0)
[2018-09-10 05:56] LABS: ALANINE AMINOTRANSFERASE 33 Units/L (12-78); ALBUMIN 3.2 g/dL (3.4-5.0); ALKALINE PHOSPHATASE 70 Units/L (46-116); ASPARTATE AMINO TRANSFERASE 19 Units/L (15-37); BLOOD UREA NITROGEN 33 mg/dL (7-18); CARBON DIOXIDE 21.7 mmol/L (21-32); CHLORIDE 104 mmol/L (98-107); COR CA(FOR HYPOALB) 9.6 mg/dL (8.5-10.1); COR NA(FOR HYPERGLY) 139 mmol/L (136-145); CREATININE 1.36 mg/dL (0.70-1.30); SODIUM 138 mmol/L (136-145); TOTAL PROTEIN 7.1 g/dL (6.4-8.2); eGFR NON BLACK RACES 55 (>60)
[2018-09-10] MEDS ORDERED: GLUCOPHAGE ONE (06:00)
[2018-09-10] MEDS: GLUCOPHAGE PO SCH (06:27)
[2018-09-10] MEDS: GLUCOTROL PO SCH (06:30)
[2018-09-10] MEDS: FORTAZ or TAZICEF VIAL INJ IVP SCH (09:10)
[2018-09-10] MEDS: LEVAQUIN PREMIX IV 500 MG 500 MG/100 ML BAG IV SCH (09:10)
[2018-09-10] MEDS: CORDARONE TAB 200 MG PO SCH (09:11)
[2018-09-10] MEDS: NORVASC TAB 10 MG PO SCH (09:11)
[2018-09-10] MEDS: TAB-A-VITE PO SCH (09:11)
[2018-09-10] MEDS: ZANTAC PO SCH (09:12)
[2018-09-10] MEDS: RANEXA PO SCH (09:12)
[2018-09-10] MEDS: ELIQUIS PO SCH (09:12)
[2018-09-10] MEDS: MUCINEX DM PO SCH (09:13)
[2018-09-10] MEDS: SYNTHROID 50 mcg TAB PO SCH (09:13)
[2018-09-10] MEDS: FLONASE NASAL SPRAY ENOSTRIL SCH (09:15)
[2018-09-10] MEDS: COENZYME Q10 100 MG PO SCH (09:16)
[2018-09-10] MEDS: EMPAGLIFLOZIN 25 MG PO SCH (09:17)
[2018-09-10] MEDS: PATIENT'S HOME MEDICATION (Glucosamine-Chondroit-Vit C-Mn [Glucosamine Chondroitin Maxstr] PO SCH (09:17)
[2018-09-10] MEDS: IRBESARTAN 300 MG PO SCH (09:17)
[2018-09-10] MEDS: PRASUGREL 10 MG PO SCH (09:18)
[2018-09-10] MEDS: SAXAGLIPTIN 5 MG PO SCH (09:18)
[2018-09-10] MEDS: PERCOCET TAB 5/325 MG PO SCH (09:19)
[2018-09-10] MEDS: MILK OF MAGNESIA PO SCH (09:20)
[2018-09-10 13:27] VITALS: BP 162/77
--- NOTE | 2018-09-10 21:19 | PCM.PROG ---
Progress Note - Progress Note for Day of Date of Exam: 09/09/18 - Subjective Subjective: WAS ADMITTED FOR ACUTE SINUSITIS, INTRACTABLE HEADACHE, AND DEHYDRATION. TODAY, HE IS ALERT AND ORIENTED, LYING IN BED ON MORNING ROUNDS. HE REPORTS A PERSISTENT, WORSENING HEADACHE TODAY. ON EXAMINATION, HEART IS REGULAR IN RATE AND RHYTHM. BILATERAL LUNGS ARE NOTED WITH DIMINISHED LUNG SOUNDS THROUGHOUT. ABDOMEN IS ROUND, SOFT, AND NON-TENDER WITH NORMAL BOWEL SOUNDS THROUGHOUT. HIS VITALS THIS MORNING ARE: 97.6-65-8-97%-185/82. LABS WERE OBTAINED. ABNORMAL LAB VALUES INCLUDE THE FOLLOWING: RBC 4.25, HCT 41.0, BUN 28, CREATININE 1.36, GLUCOSE 170, ALBUMIN 3.2. BLOOD CULTURES ARE PENDING. HE IS CURRENTLY RECEIVING IV FLUIDS, IV FORTAZ, IV LEVAQUIN, TORADOL PRN, AND FIORCET PRN. TODAY, WE WILL CHANGE TORADOL TO 10MG PO TID, CHANGE PERCOCET TO 7.5MG PO Q6H PRN, AND CHANGE FIORCET TO 2 TABLETS Q6H PRN. OTHERWISE, WE WILL CONTINUE WITH CURRENT PLAN OF CARE TODAY. WE WILL FOLLOW-UP WITH AM LABS AND CONTINUE TO MONITOR. - Past Medical Family Social History Past Med/Fam/Surg Hx: No changes since H&P Allergies: Allergies iodine Allergy (Verified 09/05/18 18:28) - Review of Systems ROS: No change since H&P - Vital Signs and I&O's Vital Signs: Temperature 97.5 F Pulse Rate [Right Brachial] 64 Respiratory Rate 18 Blood Pressure [Left Arm] 162/77 Blood Pressure [Right Arm] 162/70 Blood Pressure 163/79 O2 Sat by Pulse Oximetry 98 Intake and Output: Intake & Output 09/08/18 09/09/18 09/10/18 09/11/18 11:59 11:59 11:59 11:59 Intake Total 4300 / 4300 4988 / 4988 3247 / 3247 Balance 4300 / 4300 4988 / 4988 3247 / 3247 - Physical Exam Oriented: Normal Eyes: Normal Ear: Normal Nose: Normal Throat: Normal Respiratory: Generalized, Diminished Cardiovascular: Normal : Normal Auscultation: Bowel Sounds: Normal Tenderness: Normal Skin: Decreased Turgur Musculoskeletal: Normal Psychiatric: Normal Mood Description: Calm Affect: Normal Speech Pattern: Clear, Appropriate - Laboratory and Diagnostics Result Diagrams: 09/10/18 05:07 09/10/18 05:07 Labs: 09/05/18 16:58 Blood Blood Culture - Preliminary 09/05/18 16:47 Blood Blood Culture - Preliminary Laboratory WBC 9.9 X10^3/uL (3.6-10.0) 09/10/18 05:07 RBC 4.07 X10^6/uL (4.7-6.0) L 09/10/18 05:07 Hgb 13.2 g/dL (13.5-18.0) L 09/10/18 05:07 Hct 39.1 % (42.0-54.0) L 09/10/18 05:07 MCV 96.0 fL (80.0-100.0) 09/10/18 05:07 MCH 32.3 pg (27.0-34.0) 09/10/18 05:07 MCHC 33.7 g/dL (33.0-35.0) 09/10/18 05:07 RDW 14.5 % (11.6-16.5) 09/10/18 05:07 Plt Count 292 X10^3/uL (150.0-450.0) 09/10/18 05:07 MPV 8.3 fL (7.4-11.0) 09/10/18 05:07 Neut % (Auto) 81.3 % (42.0-75.0) H 09/10/18 05:07 Lymph % (Auto) 11.3 % (21.0-51.0) L 09/10/18 05:07 [place] % (Auto) 7.1 % (0.0-13.0) 09/10/18 05:07 Eos % (Auto) 0.1 % (0.9-2.9) L 09/10/18 05:07 Baso % (Auto) 0.2 % (0.2-1.0) 09/10/18 05:07 Neut # (Auto) 8.1 x10^3/uL (2.2-4.8) H 09/10/18 05:07 Lymph # (Auto) 1.1 X10^3/uL (1.3-2.9) L 09/10/18 05:07 [place] # (Auto) 0.7 x10^3/uL (0.3-0.8) 09/10/18 05:07 Eos # (Auto) 0.0 x10^3/uL (0.0-0.2) 09/10/18 05:07 Baso # (Auto) 0.0 X10^3/uL (0.0-0.1) 09/10/18 05:07 Absolute Nucleated RBC 0.0 /100WBC 09/10/18 05:07 Sodium 138 mmol/L (136-145) 09/10/18 05:07 Corrected Sodium 139 mmol/L (136-145) 09/10/18 05:07 Potassium 5.0 mmol/L (3.5-5.1) 09/10/18 05:07 Chloride 104 mmol/L (98-107) 09/10/18 05:07 Carbon Dioxide 21.7 mmol/L (21-32) 09/10/18 05:07 BUN 33 mg/dL (7-18) H 09/10/18 05:07 Creatinine 1.36 mg/dL (0.70-1.30) H 09/10/18 05:07 Est GFR (MDRD) Af Amer > 60 (>60) 09/10/18 05:07 Est GFR (MDRD) Non-Af 55 (>60) L 09/10/18 05:07 Glucose 152 mg/dL (65-99) H 09/10/18 05:07 POC Glucose (mg/dL) 144 mg/dL (65-99) H 09/10/18 05:56 Calcium 9.0 mg/dL (8.5-10.1) 09/10/18 05:07 Corrected Calcium 9.6 mg/dL (8.5-10.1) 09/10/18 05:07 Total Bilirubin 0.40 mg/dL (0.2-1.0) 09/10/18 05:07 AST 19 Units/L (15-37) 09/10/18 05:07 ALT 33 Units/L (12-78) 09/10/18 05:07 Alkaline Phosphatase 70 Units/L (46-116) 09/10/18 05:07 Total Protein 7.1 g/dL (6.4-8.2) 09/10/18 05:07 Albumin 3.2 g/dL (3.4-5.0) L 09/10/18 05:07 Globulin 3.9 g/dL (2.5-4.5) 09/10/18 05:07 Albumin/Globulin Ratio 0.8 Ratio (1.1-2.1) L 09/10/18 05:07 - Plan (1) Acute sinusitis Status: Acute Qualifiers: Sinusitis location: unspecified location Recurrence: non-recurrent Qualified Code(s): J01.90 - Acute sinusitis, unspecified Plan: IV FORTAZ, IV LEVAQUIN, CONTINUE TO MONITOR (2) Intractable headache Status: Acute Qualifiers: Headache type: unspecified Headache chronicity pattern: acute headache Qualified Code(s): R51 - Headache Plan: TORADOL IV PRN, FIORCET PRN, PERCOCET, CONTINUE TO MONITOR (3) Dehydration Status: Acute Plan: NORMAL SALINE, CONTINUE TO MONITOR
[2018-09-11] MEDS ORDERED: LEVAQUIN PREMIX IV 500 MG 500 MG/100 ML BAG IV SCH (09:00)
== END 2018-09-10 11:40 | disposition home or self-care (01) ==
LOC: MED/SURG
PROVIDERS: ADMIT Internal Medicine; ATTEND Internal Medicine
DX: R51 Headache; I10 Essential (primary) hypertension; E11.65 Type 2 diabetes mellitus with hyperglycemia; R26.89 Other abnormalities of gait and mobility; J01.90 Acute sinusitis, unspecified; R94.4 Abnormal results of kidney function studies; E86.0 Dehydration; E55.9 Vitamin D deficiency, unspecified
CPT/HCPCS: 36415; 71010; 71045; 80053; 85025; 87040; 96367; 96372; 96374; 97110; 97162; A4216; A4222; G0378; J0713; J1815; J1885; J1956; J2930; J7030